=== PATIENT | female | born 1985 | race Caucasian/White ===

== ENCOUNTER 2023-01-05 11:41 | Inpatient (IN) | payer OTHER, SELFPAY ==
[2023-01-05] VITALS (59 sets, daily range): BP systolic 86–136; BP diastolic 40–74; PULSE 50–86; RESP 12–18; TEMP 35.9–36.6; O2SAT 94–100; BMI 25.3
[2023-01-05] MEDS: LACTATED RINGERS 1,000 ML 125 ML IV CONT ×2 (12:28→13:35)
[2023-01-05 12:30] LABS: Basophils Percent Auto 0.3 % (0.2-1.2); Eosinophils Absolute Auto 0.1 K/mm3 (0-0.3); Eosinophils Percent Auto 0.4 % (0-4.4); Hematocrit 28.9 % (37.0-47.0); Hemoglobin 9.8 g/dL (12.0-15.0); Immature Granulocyte Absolute 0.13 K/mm3 (0.00-0.031); Lymphocytes Absolute Auto 2.18 K/mm3 (0.9-3.2); Lymphocytes Percent Auto 17.1 % (18.3-44.2); Mean Corpuscular HGB Conc 33.9 g/dl (32-36); Mean Corpuscular Volume 91.5 fl (80-100); Mean Platelet Volume 10.1 fl (7.4-10.4); Monocytes Absolute Auto 0.7 K/mm3 (0.1-0.6); Monocytes Percent Auto 5.6 % (2.6-8.5); Neutrophils Absolute Auto 9.7 K/mm3 (1.3-6.7); Neutrophils Percent Auto 75.6 % (45.5-73.1); Platelet Count Result 233 k/mm3 (150-375); Red Blood Count 3.16 M/mm3 (4.2-5.4); Red Cell Distribution Width 12.7 % (11.5-14.5); White Blood Count 12.8 K/mm3 (4.5-10.0)
--- NOTE | 2023-01-05 12:42 | LDADM ---
This patient, Cleo Parks, was admitted to Labor/Delivery/Recovery 119 on 01/05/23 at 11:41. Plans for section, pain management and were discussed with patient. Patient/family oriented to hospital policies and general routines including ID bracelet, bed and alarms, visiting hours, pain management, procedures, bathroom and other care routines, personal items, smoking policy, room service/diet and guest tray routines, security routines, and visiting hours. Patient/Family are encouraged to report perceived risks to care and to ask questions if they do not understand what they are told or what they should do. See OBIX for further documentation.
--- NOTE | 2023-01-05 13:28 | PM.IMHP ---
H&P: HPI History of Present Illness Date/Time: 01/05/23 13:28 Chief Complaint: breech, PreE Narrative: Cleo is a 37yo at 38.5 for primary CS for breech. She was found to have PreE today when PC ratio returned at 0.50. Iin office yesterday BPs [id number], baseline is 120s-130s/60s. has been complicated by AMA, marginal cord insertion, breech presentation, and maternal buprenorphine use. She has been on it for 10 years, for history of opioid addiction prior. Denies any pre E sx, feels well. PIH labs at office yesterday wnl except for PC ratio. Review of Systems Review of Systems: All systems reviewed & are unremarkable except as noted in HPI and below [facility] Family History Family History (Updated 12/31/22 @ 14:57 by Saray Hebert RN) Father Stomach cancer Mother Breast cancer Social History Social History Smoking status: Former smoker Smoking end date: 06/24/22 Substance use: former Other substance usage details: Hx of Opiod addiction Lack of Transportation: No Lack of Food: Never True Current Housing: I Have Housing Concerned About Future Housing: No Difficulty Paying Gas/Electric Bills: No Difficulty Paying for Meds: No Currently Unemployed: No Education: High School Diploma/GED Difficulty w/ Childcare or Family Care: No Spiritual care concerns: No Meds Home Medications and Allergies Home Medications Medication Instructions Recorded Confirmed Type buprenorphine HCl 8 mg sublingual 8 mg sublingual Q6H 12/31/22 12/31/22 History tablet cholecalciferol (vitamin D3) 50 50 mcg PO DAILY 12/31/22 12/31/22 History mcg (2,000 unit) capsule (Vitamin D3) ferrous sulfate 142 mg (45 mg 142 mg PO BID 12/31/22 12/31/22 History iron) tablet,extended release (Slow Fe) vit no.95-ferrous 1 tablet PO DAILY 12/31/22 12/31/22 History fumarate 28 mg-folic acid 800 mcg tablet () Allergies Allergy/AdvReac Type Severity Reaction Status Date / Time No Known Allergies Allergy Mild Verified 08/25/16 11:37 Vital Signs Vital Signs - 24 hr 01/05/23 12:37 01/05/23 12:28 Pulse Rate 81 Blood Pressure 136/72 Oxygen Delivery Room Air Exam Const: General: no acute distress Resp: Effort & Inspection: normal respiratory effort Auscultation: clear to auscultation bilaterally Cardio: Rate: regular rate Rhythm: regular rhythm GI: GI Palp: Yes Soft to palpation Extrem: General: normal to inspection H&P: Results Labs Labs: Short CBC 01/05/23 Range/Units 12:24 WBC 12.8 H (4.5-10.0) K/mm3 Hgb 9.8 L (12.0-15.0) g/dL Hct 28.9 L (37.0-47.0) % Plt Count 233 (150-375) k/mm3 Assessment and Plan Assessment and plan (1) Buprenorphine and naloxone maintenance treatment affecting in third trimester, antepartum: Code(s): O99.323 - Drug use complicating , third trimester; F11.20 - Opioid dependence, uncomplicated Status: Acute (2) Breech presentation: Code(s): O32.1XX0 - Maternal care for breech presentation, not applicable or unspecified Status: Acute (3) AMA (advanced maternal age) primigravida 35+: Code(s): O09.519 - Supervision of elderly primigravida, unspecified trimester Status: Acute Plan consented for CS for breech, discussed RBA. Pt in fact wanted elective CS even if baby not breech. Plan lidocaine patch, duramorph, continue buprenorphine, and minimize narcotics after delivery. Pt desires to not go home with narcotic prescription. her does not know about her history. She is aware of risk of ANTHONY. ancef. will proceed today for PreE instead of at 39w. magnesium for severe features which we do not presently have. FHT category 1.
--- NOTE | 2023-01-05 13:30 | PC.NURSE ---
Breech presentation verified via ultrasound per Dr. Meza prior to .
--- NOTE | 2023-01-05 13:34 | WPDHPUPDATE1 ---
History and Physical Update Update Date/Time: 01/05/23 13:34 History and Physical has been reviewed, including an updated exam of the patient. There are NO changes in the patient's condition. Risks, benefits, and alternatives have been discussed and questions answered. Patient agrees to proceed with procedure.
[2023-01-05] MEDS: ceFAZolin 2 GM/D5W 50 ML 2 GM/50 ML BAG IVPB (13:40)
[2023-01-05 14:04] LABS: Amphetamine Screen Urine Negative (Negative); Barbiturate Screen Urine Negative (Negative); Benzodiazepines Screen Urine Negative (Negative); Cannabinoid Screen Urine Negative (Negative); Cocaine Screen Urine Negative (Negative); Methadone Screen Urine Negative (Negative); Opiate Screen Urine Negative (Negative); Phencyclidine Screen Urine Negative (Negative)
--- NOTE | 2023-01-05 14:38 | PM.OBPRVD ---
OB - Delivery Note Procedure Delivery date: 01/05/23 Procedure: Procedures Operation Date: 01/05/23 13:30 <No data on this case meets the specified criteria> Primary low transverse section Events: Breech Presentation, Preeclampsia w/o severe features and Other (buprenorphine use) Route of delivery: Specimen: Yes (placenta) Quantitative Blood Loss (ml): 735 Anesthesia type: Spinal Disposition: Floor Complications: none Narrative: Preop Dx: breech, mild PreE Post Op Dx: same The patient was taken to the OR and received spinal anesthesia. She was placed in dorsal supine position with left lateral tilt. SCDs and pereyra were placed. She was prepped and draped in the normal sterile fashion. A Pfannensteil skin incision was made and carried through to the underlying layer of fascia. The fascia was incised in the midline and then extended laterally using Amaya scissors. The muscles were in the midline and the peritoneum was entered bluntly. The peritoneal incision was extended inferiorly and superiorly with care to avoid the bladder. The bladder blade was then inserted, the vesicouterine peritoneum was grasped, incised with Metzenbaum scissors, and a bladder flap created. The bladder blade was reinserted. A low transverse uterine incision was made with a scalpel and extended bluntly. AROM was performed and fluid was noted to be clear. The baby was easily delivered from maris breech presentation in normal fashion without complications. The baby's oropharynx was suctioned. After 30 seconds, the cord was clamped and cut and the infant was handed off. Cord blood was obtained and the placenta was then removed manually. The uterus was exteriorized. A moist lap sponge was used to curette the endometrium. The uterine incision was then closed with one layer of 0-Vicryl in a running, locking fashion. Good hemostasis was noted. The posterior cul de sac was irrigated with normal saline and cleared of all clot and debris. The uterus was returned to the abdomen. Both lateral gutters were then irrigated. The rectus muscles were inspected and found to be hemostatic. The fascia was reapproximated using 0-Vicryl in running fashion. The subcutaneous tissue was irrigated with normal saline and made hemostatic with Bovie electrocautery. The skin was then closed with absorbable marie. Steri strips and a bandage were applied. The uterus was evacuated. The patient tolerated the procedure very well. All counts were correct. She was taken to the recovery room in good condition. Baby Date of : 01/05/23 Time of : 14:07 Weeks of gestation at delivery: 38 Infant gender: Female Weight (pounds): 7 Weight (ounces): 3 presentation: maris breech Placenta delivery description: Manual Removal Cord Vessel Description: 3 Vessels and Clamped/Cut score one minute: 7 score five minutes: 9
[2023-01-05] MEDS: KETOROLAC 30 MG/ML VIAL (*BKC) IV PUSH (16:10)
[2023-01-05] MEDS: OXYTOCIN 30 UNITS/NS 500 ML 30 UNITS/500 ML BAG 125 UNITS IV CONT (16:56)
--- NOTE | 2023-01-05 17:30 | OBPPTRN ---
Patient transferred to post room # 291 via stretcher. Support person present. Oriented to unit, room, information board, rooming in, admission packet and security measures. Patient verbalizes understanding.
[2023-01-05] MEDS: BUPRENORPHINE HCL (*CRX) 2 MG SUBLINGUAL TABLET 8 MG SUBLINGUAL (19:52)
[2023-01-05] MEDS: DEXTROSE 5%/0.45% SOD CHL 1,000 ML 125 ML IV CONT (21:05)
[2023-01-06 00:40] VITALS: BP 140/70; PULSE 90; RESP 18; TEMP 36.9
[2023-01-06] MEDS: IBUPROFEN 600 MG TABLET PO ×4 (01:41→19:16)
[2023-01-06] MEDS: BUPRENORPHINE HCL (*CRX) 2 MG SUBLINGUAL TABLET 8 MG SUBLINGUAL ×4 (01:42→19:16)
[2023-01-06 04:50] VITALS: BP 121/60; PULSE 76; RESP 18; TEMP 36.8
[2023-01-06 05:07] LABS: Basophils Percent Auto 0.2 % (0.2-1.2); Eosinophils Absolute Auto 0.1 K/mm3 (0-0.3); Eosinophils Percent Auto 0.3 % (0-4.4); Hematocrit 23.8 % (37.0-47.0); Hemoglobin 8.1 g/dL (12.0-15.0); Immature Granulocyte Absolute 0.13 K/mm3 (0.00-0.031); Immature Granulocyte Percent A 0.8 % (0-0.5); Lymphocytes Absolute Auto 1.62 K/mm3 (0.9-3.2); Lymphocytes Percent Auto 10.1 % (18.3-44.2); Mean Corpuscular Hemoglobin 31.4 pg (26-34); Mean Corpuscular Volume 92.2 fl (80-100); Mean Platelet Volume 10.4 fl (7.4-10.4); Monocytes Percent Auto 6.5 % (2.6-8.5); Neutrophils Absolute Auto 13.2 K/mm3 (1.3-6.7); Neutrophils Percent Auto 82.1 % (45.5-73.1); Platelet Count Result 201 k/mm3 (150-375); Red Blood Count 2.58 M/mm3 (4.2-5.4); Red Cell Distribution Width 12.4 % (11.5-14.5); White Blood Count 16.1 K/mm3 (4.5-10.0)
[2023-01-06 07:23] VITALS: BP 121/69; PULSE 85; RESP 18; TEMP 36.8; O2SAT 97
--- NOTE | 2023-01-06 07:26 | PM.OBPNVD ---
OB - PN: Subj Subjective Date/time seen: 01/06/23 07:26 Patient comments: no complaints baby status: doing well (off CPAP, getting antibiotics.) Narrative: POD 1 from primary CS. Doing well. Normal lochia. Eating, has not ambulated yet, pereyra out. OB - PN: Obj Data Labs 01/06/23 04:56 Labs: Laboratory Results - last 24 hr 01/05/23 01/05/23 01/06/23 12:24 13:43 04:56 WBC 12.8 H 16.1 H RBC 3.16 L 2.58 L Hgb 9.8 L 8.1 L Hct 28.9 L 23.8 L MCV 91.5 92.2 MCH 31.0 31.4 MCHC 33.9 34.0 RDW 12.7 12.4 Plt Count 233 201 MPV 10.1 10.4 Immature Gran % (Auto) 1.0 H 0.8 H Neut % (Auto) 75.6 H 82.1 H Lymph % (Auto) 17.[address] [place] % (Auto) 5.6 6.5 Eos % (Auto) 0.4 0.3 Baso % (Auto) 0.3 0.2 Lymph # (Auto) 2.[address] [place] # (Auto) 0.7 H 1.0 H Eos # (Auto) 0.1 0.1 Baso # (Auto) 0.0 0.0 Abs Immat Gran (auto) 0.13 H 0.13 H Absolute Neuts (auto) 9.7 H 13.2 H Absolute Nucleated RBC 0.0 0.0 Nucleated RBC % 0.0 0.0 Urine Opiates Screen Negative Urine Methadone Screen Negative Ur Barbiturates Screen Negative Ur Phencyclidine Scrn Negative Ur Amphetamine Screen Negative U Benzodiazepines Scrn Negative Urine Cocaine Screen Negative U Cannabinoids Screen Negative Blood Type O Positive Antibody Screen Negative OB - PN A/P Plan day: 1 Plan: routine care Comments: start lidocaine patch today minimize opioids, continue buprenorphine venofer for anemia- hgb 8 Time Spent With Patient Time: Total time spent is greater than 50% in coordination of care (as documented) at patient's floor/unit and/or counseling patient: Exam Narrative: NAD abdomen soft, appropriately tender, incision bandaged Extremities nontender with 1+ edema
[2023-01-06] MEDS: LANOLIN (LANSINOH) 7.5 GM CREAM 1 APPLIC TOPICAL (07:29)
[2023-01-06] MEDS: DOCUSATE SODIUM 100 MG CAPSULE PO ×2 (07:29→16:49)
[2023-01-06] MEDS: MULTIVIT/MIN/PREN/FOL AC/IRON TABLET 1 TAB PO (07:29)
[2023-01-06] MEDS: POLYSACCHARIDE IRON COMPLEX 150 MG CAPSULE PO ×2 (07:29→16:49)
--- NOTE | 2023-01-06 08:12 | PC.NURSE ---
On 01/06/23, the student, Soniya Maxwell, provided care and completed [facility] documentation on this patient. I have reviewed the student's documentation and agree with the findings.
--- NOTE | 2023-01-06 09:36 | WPDANLDPN2 ---
Anes-Prog Note L&D Date/Time: 01/06/23 09:36 Comfortable throughout: section Neuraxial method: spinal Epidural/Spinal procedure site: clean & non-tender Neuro status: Neuro function grossly intact. Cardiovascular status: normal Respiratory status: normal Airway patency: baseline Mental status: baseline Post-Op hydration status: normal Vital Signs: Last Vital Signs Temp 36.8 C 01/06/23 07:23 Pulse 85 01/06/23 07:23 Resp 18 01/06/23 07:23 BP 121/69 01/06/23 07:23 Pulse Ox 97 01/06/23 07:23 O2 Del Method Room Air 01/05/23 16:45 Pain score (VAS): 2/10 I/O: Intake & Output 01/05/23 01/06/23 01/06/23 23:59 07:59 15:59 Intake Total 1500 2000 Output Total 325 1175 Balance 1175 825 Post-procedural complaints: none Patient feedback: Patient satisfied with anesthetic care.
--- NOTE | 2023-01-06 09:36 | WPDANLDNPN2 ---
Anes-Prog Note L&D-Neuraxial Date/Time: 01/06/23 09:36 Neuraxial medications: intrathecal PF morphine Opiod-related complaints: none Patient feedback: Patient satisfied with post-operative pain management.
[2023-01-06] MEDS: LIDOCAINE 5% PATCH 1 PATCH TRANSDERM (09:56)
--- NOTE | 2023-01-06 10:01 | PC.NURSE ---
[id number] Introductions were made, then consulted with patient to assess needs related to . Mother led the conversation with her?plans to feed?her infant and the?experience so far. Mother works well with her infant with encouragement and education. Encouraged understanding of the benefits of skin to skin (demonstrating unwrapping and placing upright on her chest), stimulating with massage touch, changing positions to encourage wakefulness, how to watch for early feeding cues, responsive feeding, feeding on demand (aiming for 8-12 times in 24 hours, about every 2-3 hours), milk production, hand expression, building/maintaining a milk supply, duration of feeding, signs of adequate intake/output and how to record on the feeding sheet. Reviewed positioning and ear, shoulder, hip alignment, supporting the breast to facilitate a deep latch, asymmetrical latch (off-center), leading with the chin with a big, open, wide gape and body close to mother. latched optimally to the right breast in cross cradle position. Education given to mother of how to visualize suck/swallow ratios and listen for drinking at the breast. Infant was able to maintain latch without discomfort to mother. Nipple care reviewed with optimal latch and good positioning. Infant self detached after 5 minutes, brought upright S2S, then when feeding cues are visualized infant was aligned to the left breast using cross cradle positioning effectively with no complaint of pain to mother. Reviewed good handwashing when or touching the breast/nipples to prevent infection. Resources used to facilitate learning were used with the mom and baby guide. Mother voiced understanding of skin to skin, stimulating with massage touch, responsive feedings, hand expressed colostrum, talking to to encourage if it has been 2 -2.5 hours since the start of the last , to call if does not latch, or if there is discomfort with . Resources provided for inpatient/outpatient with name written on the communication board and the mom/baby guide. Parents voiced understanding of information, demonstrated learning and will call if there is a request for assistance. Reported to the Primary RN.
[2023-01-06] MEDS: IRON SUCROSE COMPLEX 200 MG in SODIUM CHLORIDE 0.9% IV 50 ML 120 MG IVPB (10:16)
[2023-01-06 10:54] LABS: Rapid Plasma Reagin Non-Reactive (NonReactive)
[2023-01-06 13:00] VITALS: BP 124/68; PULSE 76; RESP 16; TEMP 37.4; O2SAT 96
[2023-01-06] MEDS: SIMETHICONE 80 MG TAB.CHEW PO (13:02)
--- NOTE | 2023-01-06 14:08 | PC.NURSE ---
*Copied from baby's chart* [address] Williamson, she spoke with mother and strongly recommended to the mother that she disclose of her history of Buprenorphine use to the father of the baby. Baby will need to stay here at the hospital for 5 days to monitor for withdraw and the father has a right to know medical information about his child. Mother voiced understanding and stated that she would tell him today. See Dr. Williamson's report summary.
[2023-01-06 16:45] VITALS: BP 136/81; PULSE 78
[2023-01-06 21:20] VITALS: BP 142/67; PULSE 78; RESP 16; TEMP 35.9
[2023-01-07 01:20] VITALS: BP 132/68; PULSE 78
[2023-01-07] MEDS: IBUPROFEN 600 MG TABLET PO ×4 (01:29→19:08)
[2023-01-07] MEDS: BUPRENORPHINE HCL (*CRX) 2 MG SUBLINGUAL TABLET 8 MG SUBLINGUAL ×4 (01:30→19:10)
[2023-01-07 05:15] VITALS: BP 122/65; PULSE 86
--- NOTE | 2023-01-07 08:14 | PM.OBPNVD ---
OB - PN: Subj Subjective Date/time seen: 01/07/23 08:14 Patient comments: no complaints, pain well controlled, incisional pain, tolerating diet and flatus present OB - PN: Obj Data Labs 01/06/23 04:56 Labs: Laboratory Results - last 24 hr 01/05/23 12:24 RPR Non-reactive OB - PN A/P Plan day: 2 Plan: routine care Comments: POD#2 LTCS - no problems, Time Spent With Patient Time: Total time spent is greater than 50% in coordination of care (as documented) at patient's floor/unit and/or counseling patient: Exam Const: General: comfortable, no acute distress and alert Resp: Effort & Inspection: normal respiratory effort Auscultation: no crackles, no rales and no rhonchi Cardio: Rate: regular rate Heart sounds: no click, no murmurs and no rubs GI: Inspection: non-distended GI Palp: No Tenderness to palpation present (GI) Auscultation: normal bowel sounds Other: Incision - CDI Extrem: General: normal to inspection, no pedal edema and no calf tenderness
--- NOTE | 2023-01-07 08:15 | PM.OBDSVD ---
DS: Admitting Diagnosis Discharge Date 01/07/2023 Admitting Diagnosis term DS: Discharge Diagnosis Discharge Diagnosis (1) delivery delivered: Code(s): O82 - Encounter for delivery without indication Status: Acute OB - DS: Summary OB Procedures : None OB Procedures Intrapartum: OB Procedures: : None Peripartum Data Procedures: Procedures Operation Date: 01/05/23 13:30 Actual Procedure Side Surgeon p Section Stephanie Meza MD Time Spent with Patient Time attestation: Total time spent providing and/or coordinating discharge services: DS: Data Data Completed and Pending Labs on day of discharge: Labs from last 24 hours 01/05/23 12:24 RPR Non-reactive Discharge Plan Discharge Discharging Clinician: Ben Phillips Patient Disposition: Home, Self-Care Activity: pelvic rest Diet: regular Patient Instructions: Antibiotic Form Stand Alone Forms: General Discharge Information Follow-up/Referrals: Ben Phillips MD [Physician] - Discharge Medications: Continued buprenorphine HCl 8 mg Tablet, Sublingual 8 mg SUBLINGUAL Q6H cholecalciferol (vitamin D3) [Vitamin D3] 50 mcg (2,000 unit) Capsule 50 mcg PO DAILY Slow Fe 142 mg (45 mg iron) Tablet Extended Release 142 mg PO BID PNV cmb#95-ferrous fumarate-FA [] 28 mg iron- 800 mcg Tablet 1 tablet PO DAILY Date of admission: 01/05/23 11:41 Primary Care Provider: UNKNOWN,DOCTOR Admitting Provider: Stephanie Meza Attending physician on admission: Stephanie Meza Condition: Stable
[2023-01-07] MEDS: IRON SUCROSE COMPLEX 200 MG in SODIUM CHLORIDE 0.9% IV 50 ML 120 MG IVPB (08:34)
[2023-01-07 08:50] VITALS: BP 124/72; PULSE 79; RESP 18; TEMP 37.1; O2SAT 98
[2023-01-07] MEDS: DOCUSATE SODIUM 100 MG CAPSULE PO ×2 (10:47→17:01)
[2023-01-07] MEDS: MULTIVIT/MIN/PREN/FOL AC/IRON TABLET 1 TAB PO (10:47)
[2023-01-07 11:55] VITALS: BP 138/77; PULSE 57; RESP 18; TEMP 36.9; O2SAT 99
--- NOTE | 2023-01-07 11:58 | PC.NURSE ---
[id number] Purposefully rounded to assess needs. Mother verbalizes she is able to independently latch infant with appropriate positioning/alignment. She denies any nipple discomfort and is responsively . is currently meeting outcomes for weight, output, jaundice and feeding frequencies of 8-12 times in 24 hours. Mother was encouraged to stimulate and place [id number] to breastfeed since it has been 4 hours since the last breastfeed. Mother demonstrated latching to the left and right breast using the cross cradle positioning. Reviewed how to encourage and watch for swallowing using gentle compression, breast massage, switching sides and detaching if there's pain and re-latching optimally. Mother declines any additional assistance/education at this time. Mother is encouraged to call for assistance if her infant doesn?t latch or there is discomfort with latching. Mother voiced understanding of information shared and the mom reminded of the mom/baby guide for an additional resource. Primary RN was present in the room for a short time.
[2023-01-07 17:00] VITALS: BP 142/69
[2023-01-07 21:30] VITALS: BP 127/67; PULSE 79; RESP 16; TEMP 36.6
[2023-01-08 01:00] VITALS: BP 138/70; PULSE 77
[2023-01-08] MEDS: BUPRENORPHINE HCL (*CRX) 2 MG SUBLINGUAL TABLET 8 MG SUBLINGUAL ×2 (01:02→06:36)
[2023-01-08] MEDS: IBUPROFEN 600 MG TABLET PO ×2 (01:04→06:35)
[2023-01-08] MEDS: DOCUSATE SODIUM 100 MG CAPSULE PO (06:35)
[2023-01-08] MEDS: MULTIVIT/MIN/PREN/FOL AC/IRON TABLET 1 TAB PO (06:35)
[2023-01-08] MEDS: POLYSACCHARIDE IRON COMPLEX 150 MG CAPSULE PO (06:35)
--- NOTE | 2023-01-08 07:33 | P.PNOB_ITS ---
OB - PN: Subj Subjective Date/time seen: 01/08/23 07:33 Patient comments: no complaints and pain well controlled (with only buprenorphine and ibuprofen and tylenol) [place] baby status: doing well feeding status: exclusively breast feeding OB - PN: Obj Data Labs 01/06/23 04:56 OB - PN A/P Assessment and Plan (1) delivery delivered: Code(s): O82 - Encounter for delivery without indication Status: Acute (2) Buprenorphine and naloxone maintenance treatment affecting in third trimester, antepartum: Code(s): O99.323 - Drug use complicating , third trimester; F11.20 - Opioid dependence, uncomplicated Status: Acute Plan day: 3 Plan: routine care and discharge home Comments: no narcotics for home continue buprenorphine Time Spent With Patient Time: Total time spent is greater than 50% in coordination of care (as documented) at patient's floor/unit and/or counseling patient: Exam Narrative: NAD abdomen soft, appropriately tender, incision CDI Extremities nontender with 1+ edema
--- NOTE | 2023-01-08 07:36 | PM.OBDSVD ---
DS: Admitting Diagnosis Discharge Date 01/08/23 Admitting Diagnosis term IUP, breech, buprenorphine use DS: Discharge Diagnosis Discharge Diagnosis (1) delivery delivered: Code(s): O82 - Encounter for delivery without indication Status: Acute (2) Buprenorphine and naloxone maintenance treatment affecting in third trimester, antepartum: Code(s): O99.323 - Drug use complicating , third trimester; F11.20 - Opioid dependence, uncomplicated Status: Acute OB - DS: Summary Hospital Course Hospital Course: Cleo was admitted for a delivery at 39w for breech presentation. She had an uncomplicated delivery and course. She did not use narcotics for pain control post delivery except her buprenorphine. She was discharged home on POD 3. OB Procedures : NST and Ultrasound OB Procedures Intrapartum: OB Procedures: : None Peripartum Data Delivery Method: Section Procedures: Procedures Operation Date: 01/05/23 13:30 Actual Procedure Side Surgeon p Section Stephanie Meza MD complications: none Status at Discharge Functional status at discharge: independent ambulation Time Spent with Patient Time attestation: Total time spent providing and/or coordinating discharge services: Exam Narrative: NAD abdomen soft, appropriately tender, incision CDI Discharge Plan Discharge Attending physician on discharge: Stephanie Meza Discharging Clinician: Stephanie Meza Anticipated Discharge Date/Time: 01/08/23 07:35 Patient Disposition: Home, Self-Care Activity: pelvic rest Diet: regular Patient Instructions: Antibiotic Form Stand Alone Forms: General Discharge Information Follow-up/Referrals: Ben Phillips MD [Physician] - Stephanie Meza MD [Physician] - Discharge Medications: Continued buprenorphine HCl 8 mg Tablet, Sublingual 8 mg SUBLINGUAL Q6H cholecalciferol (vitamin D3) [Vitamin D3] 50 mcg (2,000 unit) Capsule 50 mcg PO DAILY Slow Fe 142 mg (45 mg iron) Tablet Extended Release 142 mg PO BID PNV cmb#95-ferrous fumarate-FA [] 28 mg iron- 800 mcg Tablet 1 tablet PO DAILY Date of admission: 01/05/23 11:41 Primary Care Provider: UNKNOWN,DOCTOR Admitting Provider: Stephanie Meza Attending physician on admission: Stephanie Meza Condition: Stable
[2023-01-08 09:30] VITALS: BP 138/79; PULSE 80; RESP 18; TEMP 37.1; O2SAT 98
[2023-01-09 08:10] VITALS: BP 156/82; PULSE 59; RESP 20; TEMP 37.3; O2SAT 100
== END 2023-01-08 11:25 | disposition home or self-care (01) | DRG 787 ==
LOC: ANHLDR 12:02 → ANHOB2 01-07 08:17 → ANHLDR 01-11 09:21 → ANHOB2 01-11 09:21
PROVIDERS: Admitting Provider Obstetrics & Gynecology; Visit Provider Obstetrics & Gynecology
PROC: 10D00Z1 Extraction of Products of Conception, Low, Open Approach (ICD-10-PCS; CPT 59514; principal; 2023-01-05 13:30)
DX: O32.1XX0 Maternal care for breech presentation, not applicable or unspecified (principal); F11.20 Opioid dependence, uncomplicated; O99.323 Drug use complicating pregnancy, third trimester; O69.89X0 Labor and delivery complicated by other cord complications, not applicable or unspecified; Z3A.38 38 weeks gestation of pregnancy; Z37.0 Single live birth; O14.04 Mild to moderate pre-eclampsia, complicating childbirth
CPT/HCPCS: 36415; 80307; 85025; 86592; 86850; 86900; 86901; A9270; J0690; J1756; J1885; J2274; J2590; J7120